=== PATIENT | female | born 1965 | race Caucasian/White ===

== ENCOUNTER → 2018-01-08 21:53 | Outpatient (CLI) | payer BC ==
[2015-12-16 05:54] VITALS: BMI 40.7
[~2018-01-08 21:53] MED LIST: BUPROPION XL150 MG PO; GLUCOPHAGE1000 MG PO; HYDROCODONE-APA1 TAB PO; IMITREX100 MG PO; MOBIC7.5 MG PO; TENORMIN100 MG PO; TROKENDI XR100 MG PO; TRULICITY1.5 MG/0.5 SC; VALTREX500 MG PO; WELLBUTRIN SR150 MG PO; ZOFRAN ODT4 MG/UDTAB PO
== END | disposition home or self-care (01) ==
LOC: D.MAMMO 12-12 16:15
DX: Z12.31 Encounter for screening mammogram for malignant neoplasm of breast (principal)